=== PATIENT | female | born 1945 | race Caucasian/White ===

== ENCOUNTER 2021-09-17 05:27 | Inpatient (IN) ==
[2021-09-17] MEDS ORDERED: ceFAZolin 2,000 MG/50 ML DUPLEX IV ONE (06:00)
[2021-09-17] MEDS ORDERED: VANCOMYCIN 1,000 MG VIAL ONE (06:06)
[2021-09-17] MEDS ORDERED: fentaNYL 100 MCG/2 ML VIAL ONE (06:08)
[2021-09-17] MEDS ORDERED: buprenorphine HCL 0.3 MG/ML VIAL ONE (06:08)
[2021-09-17] MEDS ORDERED: MIDAZOLAM 2 MG/2 ML VIAL ONE (06:08)
[2021-09-17] MEDS ORDERED: SODIUM CHLORIDE 0.9% 250 ML IV ONE (06:17)
[2021-09-17] MEDS ORDERED: propofoL 200 MG/20 ML VIAL IV ONE (06:17)
[2021-09-17] MEDS ORDERED: ACETAMINOPHEN 500 MG TABLET PO ONE (06:31)
[2021-09-17] MEDS ORDERED: DIAZEPAM 5 MG TABLET PO ONE (06:31)
[2021-09-17] MEDS ORDERED: FAMOTIDINE 20 MG TABLET PO ONE (06:31)
[2021-09-17] MEDS ORDERED: GABAPENTIN 400 MG CAPSULE PO ONE (06:31)
[2021-09-17] MEDS ORDERED: DEXAMETHASONE 4 MG/1 ML VIAL ONE (06:34)
[2021-09-17] MEDS ORDERED: ROPIVACAINE 0.5% 30 ML VIAL ONE (06:34)
[2021-09-17] MEDS ORDERED: LIDOCAINE 1% 5 ML VIAL ONE (06:34)
[2021-09-17] MEDS ORDERED: LACTATED RINGERS 1,000 ML IV SCH (07:00)
[2021-09-17] MEDS: LACTATED RINGERS 1,000 ML IV SCH ×5 (07:00→22:41)
[2021-09-17] MEDS ORDERED: BACITRACIN OINT 0.9 GM PACK TOP ONE (08:01)
[2021-09-17] MEDS ORDERED: TRANEXAMIC ACID 1,000 MG/10 ML VIAL ONE (08:29)
[2021-09-17] MEDS ORDERED: BUPIVACAINE SPINAL 0.75% 2 ML AMP SPINAL ONE (08:29)
[2021-09-17] MEDS ORDERED: MAGNESIUM HYDROXIDE SUSP 30 ML UDCUP PO PRN (08:39)
[2021-09-17] MEDS ORDERED: ZALEPLON 5 MG CAPSULE PO PRN (08:39)
[2021-09-17] MEDS ORDERED: GLUCAGON 1 MG VIAL IM PRN (08:39)
[2021-09-17] MEDS ORDERED: MORPHINE 2 MG/1 ML SYRINGE IV PRN ×2 (08:39)
[2021-09-17] MEDS ORDERED: diphenhydrAMINE CAP 25 MG CAPSULE PO PRN (08:39)
[2021-09-17] MEDS: ONDANSETRON 4 MG/2 ML VIAL IV PRN (10:05)
[2021-09-17] MEDS ORDERED: ATROPINE 1 MG/10 ML SYRINGE IV PRN (10:19)
[2021-09-17] MEDS: ceFAZolin 2,000 MG/50 ML DUPLEX IV SCH ×2 (14:28→21:11)
[2021-09-17] MEDS ORDERED: DEXTROSE 10% 250 ML BAG IV PRN (15:00)
[2021-09-17] MEDS: amLODIPine 10 MG TABLET PO SCH (15:02)
[2021-09-17] MEDS: KETOROLAC 15 MG/1 ML VIAL IV SCH ×3 (15:02→21:11)
[2021-09-17] MEDS: DOCUSATE SODIUM 100 MG CAPSULE PO SCH ×2 (15:02→21:12)
[2021-09-17] MEDS: INSULIN LISPRO 100 UNIT/ML SUBCUT SCH ×3 (15:03→20:46)
[2021-09-17] MEDS: metFORMIN 500 MG TABLET PO SCH (17:05)
[2021-09-18] MEDS: LACTATED RINGERS 1,000 ML IV SCH (01:44)
[2021-09-18] MEDS: FONDAPARINUX 2.5 MG/0.5 ML SYRINGE SUBCUT SCH (02:35)
[2021-09-18 06:02] LABS: Basophils % 0.1 % (0.0-0.8); Eosinophils % 0.2 % (0.00-10.9); Hematocrit 31.2 VOL% (35.7-47.0); Hemoglobin 9.7 GM/DL (12.0-16.0); Immature Granulocytes % 0.5 %; Immature Granulocytes Absolute 0.08 #; Lymphocytes # 1.9 10*3/uL (1.4-4.0); Lymphocytes % 12.5 % (21.3-54.2); Mean Corpuscular HGB Conc 31.1 GM/DL (32-36); Mean Platelet Volume 11.2 FL (9.6-12.0); Monocytes # 1.2 10*3/uL (0.11-0.8); Monocytes % 8.2 % (1.7-12.7); Neutrophils % 78.5 % (38.7-73.9); Platelet Count 263 T/CUMM (130-400); Red Blood Count 3.67 MC/CUMM (3.8-5.5); Red Cell Distribution Width 14.3 % (9.3-17.3)
[2021-09-18 06:25] LABS: Calcium 8.9 MG/DL (8.5-10.1); Osmolality,Calculated 281.4 MOS/KG (273-304); Potassium 3.1 MMOL/L (3.5-5.1)
[2021-09-18] MEDS ORDERED: LEVOTHYROXINE 137 MCG TABLET PO SCH (06:30)
[2021-09-18] MEDS ORDERED: POTASSIUM CHLORIDE 20 MEQ TABLET PO ONE (08:02)
[2021-09-18] MEDS ORDERED: DEXTROSE 50% 25 GM/50 ML VIAL IV PRN (08:05)
[2021-09-18] MEDS: INSULIN LISPRO 100 UNIT/ML SUBCUT SCH ×4 (08:11→20:16)
[2021-09-18] MEDS: amLODIPine 10 MG TABLET PO SCH (08:53)
[2021-09-18] MEDS: DOCUSATE SODIUM 100 MG CAPSULE PO SCH ×2 (08:53→20:15)
[2021-09-18] MEDS: PANTOPRAZOLE 40 MG TABLET PO SCH (08:54)
[2021-09-18] MEDS: PIOGLITAZONE 15 MG TABLET PO SCH (08:54)
[2021-09-18] MEDS: LOSARTAN 50 MG TABLET PO SCH (08:54)
[2021-09-18] MEDS ORDERED: hydroCHLOROthiazide 12.5 MG CAPSULE PO SCH (09:00)
[2021-09-18] MEDS: SPIRONOLACTONE 25 MG TABLET PO SCH (09:53)
[2021-09-18] MEDS: ONDANSETRON 4 MG/2 ML VIAL IV PRN (10:31)
[2021-09-18] MEDS: metFORMIN 500 MG TABLET PO SCH (17:11)
[2021-09-19] MEDS: FONDAPARINUX 2.5 MG/0.5 ML SYRINGE SUBCUT SCH (03:28)
[2021-09-19] MEDS: LEVOTHYROXINE 125 MCG TABLET PO SCH (05:32)
[2021-09-19 05:37] LABS: Basophils % 0.2 % (0.0-0.8); Eosinophils # 0.2 10*3/uL (0.0-0.87); Eosinophils % 1.7 % (0.00-10.9); Hematocrit 32.8 VOL% (35.7-47.0); Hemoglobin 10.2 GM/DL (12.0-16.0); Immature Granulocytes % 0.7 %; Immature Granulocytes Absolute 0.09 #; Lymphocytes # 1.9 10*3/uL (1.4-4.0); Lymphocytes % 15.3 % (21.3-54.2); Mean Corpuscular HGB Conc 31.1 GM/DL (32-36); Mean Corpuscular Volume 84.5 FL (87-102); Mean Platelet Volume 10.8 FL (9.6-12.0); Monocytes # 1.1 10*3/uL (0.11-0.8); Monocytes % 8.6 % (1.7-12.7); Neutrophils % 73.5 % (38.7-73.9); Platelet Count 256 T/CUMM (130-400); Red Blood Count 3.88 MC/CUMM (3.8-5.5); Red Cell Distribution Width 14.4 % (9.3-17.3); White Blood Count 12.2 T/CUMM (4-12)
[2021-09-19] MEDS: INSULIN LISPRO 100 UNIT/ML SUBCUT SCH ×4 (07:51→23:00)
[2021-09-19] MEDS: PIOGLITAZONE 15 MG TABLET PO SCH (09:39)
[2021-09-19] MEDS: DOCUSATE SODIUM 100 MG CAPSULE PO SCH ×2 (09:40→22:59)
[2021-09-19] MEDS: SPIRONOLACTONE 25 MG TABLET PO SCH (09:40)
[2021-09-19] MEDS: amLODIPine 10 MG TABLET PO SCH (09:40)
[2021-09-19] MEDS: LOSARTAN 50 MG TABLET PO SCH (09:40)
[2021-09-19] MEDS: PANTOPRAZOLE 40 MG TABLET PO SCH (09:40)
[2021-09-19] MEDS ORDERED: MAGNESIUM SULF RIDER 2 GM/50 ML PREMIX IV ONE (09:49)
[2021-09-19 10:04] LABS: Calcium 9.1 MG/DL (8.5-10.1); Osmolality,Calculated 275.7 MOS/KG (273-304); Potassium 3.3 MMOL/L (3.5-5.1)
[2021-09-19 10:07] LABS: % Iron Saturation 9.1 % (18-50); Ferritin 364.1 ng/mL (8-252)
[2021-09-19] MEDS ORDERED: POTASSIUM CHLORIDE 20 MEQ TABLET PO ONE (13:23)
[2021-09-19 16:20] LABS: Bilirubin,Urine Negative (Negative); Blood, Urine Small mg/dL (Negative); Glucose,Urine (UA) Negative (Negative); Ketones,Urine Negative (Negative); Nitrite,Urine Negative (Negative); Protein,Urine Negative (Negative); Urine Appearance Clear (Clear); Urine Color Yellow (Yellow); Urine Specific Gravity 1.025 (1.001-1.035)
[2021-09-19 16:23] LABS: Bacteria,Urine Occasional /HPF (Few); Mucus,Urine Occasional /LPF (Occasional); Squamous Epithelial Cell,Urine Occasional /HPF (0-10)
[2021-09-19] MEDS: metFORMIN 500 MG TABLET PO SCH (17:18)
[2021-09-19] MEDS: FERROUS SULFATE 325 MG TABLET PO SCH (22:59)
[2021-09-20] MEDS: FONDAPARINUX 2.5 MG/0.5 ML SYRINGE SUBCUT SCH (03:07)
[2021-09-20 05:07] LABS: Basophils % 0.3 % (0.0-0.8); Eosinophils # 0.4 10*3/uL (0.0-0.87); Eosinophils % 3.2 % (0.00-10.9); Hematocrit 31.9 VOL% (35.7-47.0); Hemoglobin 9.9 GM/DL (12.0-16.0); Immature Granulocytes % 0.4 %; Immature Granulocytes Absolute 0.05 #; Lymphocytes % 16.7 % (21.3-54.2); Mean Corpuscular Volume 84.8 FL (87-102); Mean Platelet Volume 11.2 FL (9.6-12.0); Monocytes # 0.9 10*3/uL (0.11-0.8); Monocytes % 7.5 % (1.7-12.7); Neutrophils % 71.9 % (38.7-73.9); Platelet Count 255 T/CUMM (130-400); Red Blood Count 3.76 MC/CUMM (3.8-5.5); Red Cell Distribution Width 14.4 % (9.3-17.3); White Blood Count 11.7 T/CUMM (4-12)
[2021-09-20] MEDS: LEVOTHYROXINE 125 MCG TABLET PO SCH (06:26)
[2021-09-20 08:56] VITALS: BP 136/81
[2021-09-20] MEDS: INSULIN LISPRO 100 UNIT/ML SUBCUT SCH (08:59)
[2021-09-20] MEDS: SPIRONOLACTONE 25 MG TABLET PO SCH (09:20)
[2021-09-20] MEDS: PIOGLITAZONE 15 MG TABLET PO SCH (09:20)
[2021-09-20] MEDS: PANTOPRAZOLE 40 MG TABLET PO SCH (09:21)
[2021-09-20] MEDS: LOSARTAN 50 MG TABLET PO SCH (09:21)
[2021-09-20] MEDS: DOCUSATE SODIUM 100 MG CAPSULE PO SCH (09:21)
[2021-09-20] MEDS: FERROUS SULFATE 325 MG TABLET PO SCH (09:21)
[2021-09-20] MEDS: amLODIPine 10 MG TABLET PO SCH (09:21)
== END 2021-09-20 11:15 | disposition home health service (06) | DRG 470 ==
LOC: N.OR 05:27 → N.SDSINP 05:28 → N.TELEN 14:48
PROVIDERS: ADMIT Orthopaedic Surgery; ATTEND Orthopaedic Surgery

== ENCOUNTER 2022-04-17 09:04 | Observation (INO) ==
[2022-04-17 09:44] LABS: Albumin 3.3 G/DL (3.4-5.0); Bilirubin,Total 0.5 MG/DL (0.20-1.00); Calcium 9.5 MG/DL (8.5-10.1); Osmolality,Calculated 281.4 MOS/KG (273-304); Potassium 3.5 MMOL/L (3.5-5.1)
[2022-04-17 10:07] LABS: Basophils % 0.3 % (0.0-0.8); Eosinophils # 0.1 10*3/uL (0.0-0.87); Hematocrit 37.1 VOL% (35.7-47.0); Hemoglobin 11.8 GM/DL (12.0-16.0); Immature Granulocytes % 0.3 %; Immature Granulocytes Absolute 0.02 #; Lymphocytes # 1.9 10*3/uL (1.4-4.0); Lymphocytes % 26.4 % (21.3-54.2); Mean Corpuscular HGB Conc 31.8 GM/DL (32-36); Mean Corpuscular Volume 84.7 FL (87-102); Mean Platelet Volume 10.3 FL (9.6-12.0); Monocytes # 0.7 10*3/uL (0.11-0.8); Monocytes % 9.2 % (1.7-12.7); Neutrophils % 61.8 % (38.7-73.9); Platelet Count 292 T/CUMM (130-400); Red Blood Count 4.38 MC/CUMM (3.8-5.5); Red Cell Distribution Width 14.8 % (9.3-17.3); White Blood Count 7.1 T/CUMM (4-12)
[2022-04-17] MEDS ORDERED: ZALEPLON 5 MG CAPSULE PO PRN (11:41)
[2022-04-17] MEDS ORDERED: BISACODYL 5 MG TABLET PO PRN (11:41)
[2022-04-17] MEDS ORDERED: DEXTROSE 10% 250 ML BAG IV PRN (11:41)
[2022-04-17] MEDS ORDERED: DOCUSATE SODIUM 100 MG CAPSULE PO PRN (11:41)
[2022-04-17] MEDS ORDERED: ONDANSETRON 4 MG/2 ML VIAL IV PRN (11:41)
[2022-04-17] MEDS ORDERED: GLUCAGON 1 MG VIAL IM PRN (11:41)
[2022-04-17] MEDS ORDERED: ACETAMINOPHEN 325 MG TABLET PO PRN (11:41)
[2022-04-17] MEDS ORDERED: MELOXICAM 7.5 MG TABLET PO PRN (11:47)
[2022-04-17 12:25] LABS: Bacteria,Urine Occasional /HPF (Few); RBC,Urine <1 /HPF (0-4); Squamous Epithelial Cell,Urine Occasional /HPF (0-10)
[2022-04-17 12:26] LABS: Glucose,Urine (UA) Negative (Negative); Ketones,Urine Negative (Negative); Nitrite,Urine Negative (Negative); Protein,Urine Negative (Negative); Urine Appearance Clear (Clear); Urine Color Yellow (Yellow); Urine Specific Gravity 1.015 (1.001-1.035); Urine pH 6.5 (4.5-8.0)
[2022-04-17 12:27] LABS: Bilirubin,Urine Negative (Negative); Blood, Urine Negative (Negative); Urine Urobilinogen 0.2 eU/dL (<2.0)
[2022-04-17] MEDS: ENOXAPARIN 40 MG/0.4 ML SYRINGE SUBCUT SCH ×2 (14:10→14:21)
[2022-04-17] MEDS: POLYMYXIN/TRIMETHOPRIM OPH SOL 10 ML BOTTLE BOTH EYES SCH ×3 (16:19→21:58)
[2022-04-17] MEDS ORDERED: INFLUENZA VIRUS VACCINE 0.5 ML SYRINGE IM ONE (16:21)
[2022-04-17] MEDS: INSULIN LISPRO 100 UNIT/ML SUBCUT SCH ×2 (16:35→21:53)
[2022-04-18] MEDS: POLYMYXIN/TRIMETHOPRIM OPH SOL 10 ML BOTTLE BOTH EYES SCH ×8 (00:24→23:08)
[2022-04-18 05:42] LABS: Basophils % 0.4 % (0.0-0.8); Eosinophils # 0.1 10*3/uL (0.0-0.87); Eosinophils % 1.8 % (0.00-10.9); Hematocrit 36.1 VOL% (35.7-47.0); Hemoglobin 11.3 GM/DL (12.0-16.0); Immature Granulocytes % 0.1 %; Immature Granulocytes Absolute 0.01 #; Lymphocytes # 2.7 10*3/uL (1.4-4.0); Lymphocytes % 34.6 % (21.3-54.2); Mean Corpuscular HGB Conc 31.3 GM/DL (32-36); Mean Corpuscular Volume 84.9 FL (87-102); Mean Platelet Volume 11.3 FL (9.6-12.0); Monocytes # 0.7 10*3/uL (0.11-0.8); Monocytes % 9.7 % (1.7-12.7); Neutrophils % 53.4 % (38.7-73.9); Platelet Count 264 T/CUMM (130-400); Red Blood Count 4.25 MC/CUMM (3.8-5.5); Red Cell Distribution Width 14.8 % (9.3-17.3); White Blood Count 7.7 T/CUMM (4-12)
[2022-04-18] MEDS: LEVOTHYROXINE 125 MCG TABLET PO SCH (05:45)
[2022-04-18 06:06] LABS: Calcium 9.5 MG/DL (8.5-10.1); Osmolality,Calculated 278.4 MOS/KG (273-304); Potassium 3.5 MMOL/L (3.5-5.1); Risk Ratio 2.48; VLDL Cholesterol 16.6 MG/DL
[2022-04-18] MEDS: ASPIRIN EC 81 MG TABLET PO SCH (09:55)
[2022-04-18] MEDS: PANTOPRAZOLE 40 MG TABLET PO SCH (09:55)
[2022-04-18] MEDS: amLODIPine 10 MG TABLET PO SCH (09:55)
[2022-04-18] MEDS: INSULIN LISPRO 100 UNIT/ML SUBCUT SCH ×4 (10:21→23:06)
[2022-04-18] MEDS: ENOXAPARIN 40 MG/0.4 ML SYRINGE SUBCUT SCH (12:54)
[2022-04-19] MEDS: POLYMYXIN/TRIMETHOPRIM OPH SOL 10 ML BOTTLE BOTH EYES SCH ×4 (00:19→09:39)
[2022-04-19 04:49] LABS: Calcium 9.3 MG/DL (8.5-10.1); Osmolality,Calculated 282.3 MOS/KG (273-304); Potassium 3.4 MMOL/L (3.5-5.1)
[2022-04-19] MEDS: LEVOTHYROXINE 125 MCG TABLET PO SCH (05:31)
[2022-04-19] MEDS: POTASSIUM CHLORIDE RIDER 10 MEQ/100 ML PREMIX IV SCH ×2 (08:41→10:53)
[2022-04-19] MEDS: INSULIN LISPRO 100 UNIT/ML SUBCUT SCH (09:14)
[2022-04-19] MEDS: amLODIPine 10 MG TABLET PO SCH (09:14)
[2022-04-19] MEDS: PANTOPRAZOLE 40 MG TABLET PO SCH (09:14)
[2022-04-19] MEDS: ASPIRIN EC 81 MG TABLET PO SCH (09:14)
[2022-04-19 11:29] VITALS: BP 138/77
== END 2022-04-19 11:55 | disposition home or self-care (01) ==
LOC: N.ED 09:04 → N.EDINP 09:04 → SUATTDRO 11:41 → N.TELEN 13:35
PROVIDERS: ADMIT Internal Medicine; ATTEND Internal Medicine